=== PATIENT | male | born 1955 | race Caucasian/White ===

== ENCOUNTER 2023-06-28 08:26 | Emergency (ER) | payer MEDICARE, OTHER ==
[2023-06-28] MEDS ORDERED: Sodium Chloride 0.9% 10 ML Syringe FLUSH PRN (08:53)
[2023-06-28 09:17] LABS: BASOPHILS PERCENT AUTO 0.5 % (0.3-3.8); EOSINOPHILS ABSOLUTE AUTO 0.1 x10-3/uL (0.0-0.6); EOSINOPHILS PERCENT AUTO 1.1 % (0.1-6.8); HEMATOCRIT 43.8 % (38.3-50.1); LYMPHOCYTES ABSOLUTE AUTO 1.5 x10-3/uL (0.5-4.5); LYMPHOCYTES PERCENT AUTO 16.9 % (15.8-45.3); MEAN CORPUSCULAR HEMOGLOBIN 32.9 pg (27.0-33.3); MEAN CORPUSCULAR HGB CONC 34.3 g/dL (28.7-35.3); MEAN CORPUSCULAR VOLUME 96.1 fL (80.8-98.7); MEAN PLATELET VOLUME 8.5 fL (6.7-11.0); MONOCYTES ABSOLUTE AUTO 0.6 x10-3/uL (0.0-1.2); MONOCYTES PERCENT AUTO 6.7 % (5.5-15.2); NEUTROPHILS ABSOLUTE AUTO 6.4 x10-3/uL (1.7-6.9); NEUTROPHILS PERCENT AUTO 74.8 % (40.3-71.8); PLATELET COUNT,PLT 248 x10(3)uL (117-477); RED BLOOD CELL COUNT 4.56 x10(6)uL (3.90-5.90); WHITE BLOOD CELL COUNT,WBC 8.6 x10-3/uL (3.2-10.1)
[2023-06-28 09:18] LABS: BLOOD UREA NITROGEN,BUN 23 mg/dL (7-18); CALCIUM 9.1 mg/dL (8.6-10.2); CARBON DIOXIDE,CO2 29 mmol/L (21-32); CHLORIDE,CL 104 mmol/L (100-110); EST CRCL DRUG DOSING (CG) 80.83 mL/min; ESTIMATED GFR 84 mL/min (>60); GLUCOSE RANDOM 128 mg/dL (80-116); POTASSIUM,K 4.3 mmol/L (3.5-5.3); SODIUM,NA 140 mmol/L (135-145)
[2023-06-28] MEDS: Labetalol 20 MG/4 ML Syringe IVPUSH ONE (09:18)
[2023-06-28 09:25] LABS: INR 0.94 (1.00-1.24); PROTHROMBIN TIME 9.7 sec (9.0-11.1)
[2023-06-28 09:29] LABS: A/G RATIO 0.7; ALANINE AMINOTRANSFERASE,ALT 24 U/L (12-36); ALBUMIN 3.2 g/dL (3.2-4.6); ALKALINE PHOSPHATASE 88 IU/L (56-112); ASPARTATE AMNIOTRANSFERASE,AST 20 IU/L (5-25); BILIRUBIN TOTAL 0.4 mg/dL (0.1-1.3); PROTEIN TOTAL,TP 7.7 g/dL (6.0-8.0); PTT,PARTIAL THROMBOPLSTIN TIME 26.8 SECONDS (24.4-33.2)
[2023-06-28 09:33] LABS: TROPONIN I 24.1 pg/mL (4.0-60.3); TSH ULTRASENSITIVE 1.27 IU/mL (0.36-3.74)
[2023-06-28] MEDS: amLODIPine 10 MG Tab PO STA (09:47)
== END 2023-06-28 10:40 | disposition home or self-care (01) ==
LOC: FB.ED 08:26
DX: I16.9 Hypertensive crisis, unspecified (principal); J44.9 Chronic obstructive pulmonary disease, unspecified; R79.1 Abnormal coagulation profile
CPT/HCPCS: 71045; 80053; 83880; 84443; 84484; 85025; 85610; 85730; 93005; 93010; 96374; 99284; 99284-25; A9270-GY; J3490

== ENCOUNTER 2024-06-01 06:11 | Day surgery (SDC) | payer MEDICARE ==
[2024-06-01] MEDS ORDERED: Phenylephrine 0.5% Nasal Spray 15 ML Bot NAS ONE (06:12)
[2024-06-01] MEDS ORDERED: ePHEDrine 50 MG/ML SDV IV ONE (06:12)
[2024-06-01] MEDS ORDERED: Propofol 200 MG/20 ML SDV IV ONE (06:12)
[2024-06-01] MEDS ORDERED: Sodium Chloride 0.9% 10 ML Syringe FLUSH PRN (06:15)
[2024-06-01] MEDS: Lactated Ringers 1,000 ML IV SCH (07:09)
[2024-06-01] MEDS: Simethicone Drops 40 MG/0.6 ML 30 ML Bottle PO ONE (07:47)
== END 2024-06-01 09:34 | disposition home or self-care (01) ==
LOC: FB.SDS 06:11
PROVIDERS: ATTEND Surgery
DX: Z12.11 Encounter for screening for malignant neoplasm of colon (principal); D12.6 Benign neoplasm of colon, unspecified; D12.8 Benign neoplasm of rectum; K63.5 Polyp of colon; K57.30 Diverticulosis of large intestine without perforation or abscess without bleeding; R19.5 Other fecal abnormalities; F17.210 Nicotine dependence, cigarettes, uncomplicated; Z79.899 Other long term (current) drug therapy
CPT/HCPCS: 00811; 88305; A9270-GY; J2704; J7120